=== PATIENT | female | born 1945 | race Caucasian/White ===

== ENCOUNTER → 2016-07-08 | Outpatient (CLI) | payer OTHER ==
[~2016-07-08] VITALS: Ht 167.6 cm; Wt 84.6 kg
[~2016-07-08] MED LIST: ASPIR 8181 MG PO; ATORVASTATIN CA40 MG PO; COZAAR 50 MG TA50 M2 PO; IBUPROFEN 200200 M1 PO; ROSUVASTATIN CA40 MG PO; TOPROL XL25 MG PO
--- NOTE | ~2016-07-08 | HPC ---
[facility] [place] [address] PAIN MANAGEMENT CONSULTATION Name: RUDY NICHOLSON Room #: REG [facility].#: [id number] Admission: 07/08/16 Attend Phys: Neal Rao DO Discharge: Date of : 43 Report #: [id number] THIS REPORT FOR: //name// CC: Anatoly Steele NP DATE OF SERVICE: 07/08/2016 DATE OF SERVICE: 07/08/2016 CHIEF COMPLAINT: Low back pain, left lower extremity pain. HISTORY OF PRESENT ILLNESS: As you know, patient is a 71-year-old female, who returns today in followup visit having noted 100% improvement in overall pain lasting for nearly 6 months with the previous injection. She returns today with recurrent pain, now rating pain somewhere between 7-9/10. She states her pain is "miserable." She states it is sharp, aching, numbness and tingling, exacerbated with bending and walking, improves with repositioning. She returns today to undergo the next in a series of epidural injections in hopes of building on success of previous intervention. She denies any changes in her medical history since our last visit. ALLERGIES: No known drug allergies. CURRENT MEDICATIONS: , ibuprofen, aspirin, metoprolol, losartan. SOCIAL HISTORY: She denies IV or illicit drug use. Smokes tobacco occasionally. She takes one alcohol beverage per day. She is unaccompanied today. PHYSICAL EXAMINATION: VITAL SIGNS: Blood pressure 128/70, pulse 86, respiratory rate 16, unlabored. The patient 98% on room air. Height 5 feet 6 inch tall, weight 186.4 pounds, BMI calculated 30.1. GENERAL: Well-developed, well nourished, well hydrated 71-year-old female appearing stated age, placing current pain score 7-9/10. HEENT: Normocephalic, atraumatic. Pupils equal, round, reactive to light. EXTREMITIES: Show no clubbing, no cyanosis, no edema. MUSCULOSKELETAL: Seated straight leg raising negative. Supine straight leg raising positive on the left. Hola's test negative. Modified Gaenslen's positive for axial low back pain. There is a slight change in gait favoring left lower extremity over right. ASSESSMENT: 1. Chronic lumbar radiculopathy. [address] [address] PAIN MANAGEMENT CONSULTATION Name: RUDY NICHOLSON Room #: REG [facility] Sreekanth#: [id number] Admission: 07/08/16 Attend Phys: Neal Rao DO Discharge: Date of : 43 Report #: [id number] 2. Displacement of lumbar intervertebral disk with radiculopathy. 3. Lumbosacral spondylosis with radiculopathy. 4. Severe neural foraminal stenosis of lumbar spine. 5. Chronic intractable pain. PLAN: 1. The patient returns today in followup visit having noted 100% improvement in overall pain with the epidural injection provided on 11/07/2015. The patient reports near 6-month improvement in overall symptoms, but unfortunately began to experience slow and progressive return of symptoms. She is now placing pain score 7/10. She returns today in followup visit to undergo the next in the series of epidural injections in hopes of improving pain further. The patient was advised of the risks and the benefits of this procedure. These risks include but are not necessarily limited to bleeding, bruising, infection, worsening pain, no relief of pain, also risk of temporary or permanent muscle weakness, temporary or permanent nerve damage, possible paralysis and . The patient states understood and wished to proceed. 2. No medication changes were made at today's visit. The patient will continue current medical therapy as previously prescribed. 3. The patient to return to our clinic on an as needed basis for possible next in the series of epidural injections. PROCEDURE NOTE DESCRIPTION OF PROCEDURE: Lumbar epidural steroid injection under fluoroscopic guidance. This is the second procedure of the first series that the patient is undergoing. After obtaining written consent, the patient was taken back to the fluoroscopy suite, placed in a prone position with pillow under the abdomen to decrease lumbar lordosis. The skin overlying the lumbosacral area was then prepped and draped in aseptic fashion. The lumbar vertebral interspace was then identified by AP fluoroscopy. The skin and subcutaneous tissue overlying the target site of injection was anesthetized with 3 mL 1% lidocaine. A 20-gauge 3-1/2 inch Tuohy needle was then advanced under fluoroscopic guidance towards the epidural space using a left paramedian approach. The epidural space was identified using loss of resistance to air technique. After negative aspiration for heme or cerebrospinal fluid, a total of 1 mL of Omnipaque was injected. A lumbar epidurogram was confirmed using both AP and lateral fluoroscopy. After negative aspiration for heme or cerebrospinal fluid, 5 mL of solution containing 2 mL 40 mg per mL 80 mg total triamcinolone, 3 mL of lidocaine 1% was injected in increments. Contrast spread was noted posterior epidural space. The needle was then retracted approximately half way and needle tract flushed with 1 mL of 1% lidocaine. Needle was then removed. There were [facility] [address] [place] [address] PAIN MANAGEMENT CONSULTATION Name: RUDY NICHOLSON Room #: REG [facility]#: [id number] Admission: 07/08/16 Attend Phys: Neal Rao DO Discharge: Date of : 43 Report #: [id number] no apparent sensory or motor deficits in the lower extremity following the procedure. A sterile bandage was placed over the injection site. The heart rate, pulse, oximetry and blood pressure were continuously monitored after the procedure. There were no apparent complications. The patient tolerated the procedure well and was carefully escorted to the recovery room in stable condition. There were no apparent complications. After meeting discharge criteria, the patient was then discharged home. By: [id number] Neal Rao DO /nt
[2016-07-08 13:37] VITALS: BP 128/70
== END | disposition home or self-care (01) ==
LOC: PAIN 06:39
DX: M51.16 Intervertebral disc disorders with radiculopathy, lumbar region (principal); M47.27 Other spondylosis with radiculopathy, lumbosacral region; M48.06 Spinal stenosis, lumbar region; G89.29 Other chronic pain

== ENCOUNTER → 2016-08-26 | Outpatient (CLI) | payer OTHER ==
[~2016-08-26] VITALS: Ht 167.6 cm; Wt 82.6 kg
--- NOTE | ~2016-08-26 | HPC ---
[facility] [address] [place] [address] PAIN MANAGEMENT CONSULTATION Name: RUDY NICHOLSON Room #: REG [facility].#: [id number] Admission: 08/26/16 Attend Phys: Neal Rao DO Discharge: Date of : 43 Report #: [id number] THIS REPORT FOR: //name// CC: Anatoly Steele NP DATE OF SERVICE: 08/26/2016 CHIEF COMPLAINT: Neck pain, left upper extremity pain and paresthesias. HISTORY OF PRESENT ILLNESS: As you know, the patient is a 71-year-old female who was originally referred to our service for low back pain, left lower extremity pain. She has done very well with injections to address lumbar radicular symptoms, but now neck pain, left upper extremity pain for which she places pain score at 8/10, states her pain is aching, numbness and tingling when describing symptoms. Pain is radiating from the neck all the way down into the hand. She originally believed this pain was due to shoulder issue, this has been effectively ruled out by the primary team and she was referred for cervical radicular symptoms. The patient indicates sleep movement exacerbates symptoms. Nothing appears to improve pain. ALLERGIES: No known drug allergies. CURRENT MEDICATIONS: Rosuvastatin 40 mg per day, ibuprofen 200 mg 4 tabs 3 times a day, aspirin 81 mg per day, metoprolol 25 mg per day, losartan 50 mg twice a day. IMAGING: No new imaging available. PHYSICAL EXAMINATION: VITAL SIGNS: Blood pressure 145/75, pulse 74, respiratory rate 16, unlabored. The patient is 100% on room air, height 5 feet 6 inches tall, weight 182.2 pounds, BMI calculated 29.4. GENERAL: Well-developed, well-nourished, well-hydrated 71-year-old female appearing her stated age. She is placing pain score today at around 8/10. HEENT: Normocephalic, atraumatic. Pupils equal, round, reactive to light. Extraocular muscles are intact. Sclerae are nonicteric without injection. NEUROLOGIC: Cranial nerves 2-12 grossly intact. Speech fluent. The patient deemed a good historian. LUNGS: Clear, no wheeze, rhonchi or rales. CARDIOVASCULAR: Regular. No appreciable gallop or rub. ABDOMEN: Soft, mildly obese, normoactive bowel sounds. EXTREMITIES: Show no clubbing, no cyanosis, no edema. MUSCULOSKELETAL: Upper extremity strength appears equal and symmetrical 5/5. [address] [address] PAIN MANAGEMENT CONSULTATION Name: RUDY NICHOLSON Room #: REG [facility].#: [id number] Admission: 08/26/16 Attend Phys: Neal Rao DO Discharge: Date of : 43 Report #: [id number] She is intact to light touch from C5 through T1 dermatomes. Provocation testing of the left shoulder does intensify pain, but pain is not in the actual shoulder itself, it is radiating from the neck into the proximal radial area. Spurling's test is equivocal. Cervical provocation testing does intensify neck pain with no radiation of symptoms. Muscle bulk and tone is equal and symmetrical in upper extremities. ASSESSMENT: 1. Cervical radiculopathy. 2. Cervical spondylosis with radicular symptoms. 3. Left shoulder pain. PLAN: 1. The patient has returned today in followup visit with new onset of neck pain, left upper extremity pain and paresthesias. It does not appear the patient is suffering from any intrinsic shoulder pathology as passive and active range of motion does not cause pain directly in the shoulder. It does cause pain in radiation distribution, more typical of radiculopathy. Her Spurling's test was equivocal today and difficult to determine if she was receiving any significant pain distribution with the maneuver, but her pain has been present and appears to be radiating in a typical radicular fashion radiating from the neck into the myotomal distribution in the upper back, but also radiation with dermatomal distribution all the way to the proximal radius. The patient and I discussed the treatment options for suspected cervical radiculopathy. These would include physical therapy, stretching exercises and traction techniques. We discussed medication management with neuropathic pain medications. We discussed the requested cervical epidural injection and surgical options. After reviewing risks and benefits of all proposed treatment options, the patient chose to begin with a cervical epidural injection. The patient was advised risks and benefits of a cervical epidural injection. These risks include but are not necessarily limited to bleeding, bruising, infection, worsening pain, no relief of pain, also risk of temporary or permanent muscle weakness, temporary or permanent nerve damage, possible paralysis and . The patient states understood and wished to proceed. 2. No medication changes were made at today's visit. The patient to continue current medical therapy as previously prescribed. 3. We will see the patient back in followup visit in 2-3 weeks. At that time, review efficacy of today's cervical epidural injection and determine if repeat injection might be necessary. 4. We wish to thank the referring team for the opportunity to see this patient back in followup visit. Again, we wish to thank that referring team. PROCEDURE NOTE DESCRIPTION OF PROCEDURE: C7-T1 cervical epidural steroid injection under fluoroscopic guidance. [address] [address] PAIN MANAGEMENT CONSULTATION Name: RUDY NICHOLSON Room #: REG [facility]#: [id number] Admission: 08/26/16 Attend Phys: Neal Rao DO Discharge: Date of : 43 Report #: [id number] After obtaining written consent, the patient was taken back to fluoroscopy suite, placed in a prone position with separate pillows under chest and forehead to decrease cervical lordosis. Skin overlying cervical area prepped and draped in aseptic fashion. C7-T1 cervical interspace was identified by AP fluoroscopy. Skin and subcutaneous tissue overlying the target site of injection was anesthetized with 3 mL of 1% lidocaine. A 20-gauge 3-1/2 inch Tuohy needle advanced under fluoroscopic guidance towards the epidural space using a left paramedian approach. Epidural space identified using loss of resistance to air technique. After negative aspiration for heme or cerebrospinal fluid, 1 mL of Omnipaque was injected. A cervical epidurogram was confirmed using both AP and oblique fluoroscopy. After negative aspiration for heme or cerebrospinal fluid, 5 mL of a solution containing 2 mL 40 mg per mL, 80 mg total triamcinolone, 3 mL lidocaine 1% injected slowly. Needle retracted skilled nursing, needle tract flushed 3 mL 1% lidocaine. Needle then removed. Sterile bandage placed over injection site. No new motor deficits present in the upper extremity following the procedure. The patient tolerated procedure well, carefully escorted to the recovery in stable condition. No apparent complications. After meeting discharge criteria, the patient discharged home. By: [id number] Neal Rao DO /nt
[2016-08-26 09:14] VITALS: BP 145/75
== END | disposition home or self-care (01) ==
LOC: PAIN 07:27
DX: M54.12 Radiculopathy, cervical region (principal); M47.812 Spondylosis without myelopathy or radiculopathy, cervical region; M25.512 Pain in left shoulder

== ENCOUNTER → 2016-09-09 | Outpatient (CLI) | payer OTHER ==
[~2016-09-09] VITALS: Ht 167.6 cm; Wt 81.1 kg
[~2016-09-09] MED LIST changes: +MOBIC7.5 MG PO
[2016-09-09 09:49] VITALS: BP 122/78
== END ==
LOC: PAIN 06:49
DX: M47.22 Other spondylosis with radiculopathy, cervical region (principal); I10 Essential (primary) hypertension; F17.200 Nicotine dependence, unspecified, uncomplicated; F10.21 Alcohol dependence, in remission

== ENCOUNTER → 2017-03-24 | Outpatient (CLI) | payer OTHER ==
[~2017-03-24] VITALS: Ht 167.6 cm; Wt 84.1 kg
--- NOTE | ~2017-03-24 | HPC ---
[facility] [address] [place] [address] PAIN MANAGEMENT CONSULTATION Name: BHARATRUDY Anupam Room #: REG [facility]..#: [id number] Admission: 03/24/17 Attend Phys: Neal Rao DO Discharge: Date of : 43 Report #: [id number] THIS REPORT FOR: //name// CC: DONTRELL Rao LOUISE [employer] DATE OF SERVICE: 03/24/2017 CHIEF COMPLAINT: Low back pain, right lower extremity pain and paresthesias. HISTORY OF PRESENT ILLNESS: As you know, the patient is a very pleasant 71-year-old female who returns today in followup visit with low back pain, right lower extremity pain and paresthesias. The patient indicates pain is sharp, aching, sore, numbness, tingling and stabbing; places current pain score at 8/10; exacerbated with sitting and activities; improves with medications, heat and cold compresses and epidural injections. She returns today in followup visit requesting next in the series of epidural injections to address recurrent lumbar radicular symptoms. The patient indicates no new injury, no new trauma that may have led to symptom development. She returns today requesting this epidural injection in hopes of improving low back pain and lower extremity symptoms consistent with lumbar radiculopathy. ALLERGIES: No known drug allergies. CURRENT MEDICATIONS: Meloxicam 7.5 mg twice a day, lovastatin 40 mg once a day, ibuprofen p.r.n., aspirin 81 mg per day, metoprolol 25 mg per day, losartan 50 mg per day. SOCIAL HISTORY: The patient denies IV or illicit drug use. Continues to smoke. Admits to one alcoholic beverage per day. She is retired, unaccompanied today. IMAGING: No new imaging available. PHYSICAL EXAMINATION: VITAL SIGNS: Blood pressure 140/68, pulse 68, respiratory rate 20 and unlabored. The patient is 100% on room air. Height 5 feet 6 inches tall, weight 185.4 pounds, BMI calculated at 29.9. GENERAL: Well-developed, well-nourished, well-hydrated 71-year-old female appearing her stated age, placing pain score today around 8/10. HEENT: Normocephalic, atraumatic. Pupils equal, round, reactive to light. Extraocular muscles are intact. EXTREMITIES: Show no clubbing, no cyanosis, no edema. MUSCULOSKELETAL: Seated straight leg raising negative. Supine straight leg raising positive on the right. DIANNA [place] [address] PAIN MANAGEMENT CONSULTATION Name: RUDY NICHOLSON Room #: REG [facility]#: [id number] Admission: 03/24/17 Attend Phys: Neal Rao DO Discharge: Date of : 43 Report #: [id number] positive for axial low back pain. Ankle clonus negative. Babinski is negative. Muscle bulk and tone symmetrical in lower extremities. She is intact to light touch from L1 through S2 dermatomes. ASSESSMENT: 1. Symptomatic lumbar radiculopathy. 2. Displacement of lumbar intervertebral disk with radiculopathy. 3. Lumbosacral spondylosis with radiculopathy. 4. Severe foraminal stenosis of lumbar spine. 5. Chronic intractable pain. PLAN: 1. The patient has returned today in followup visit requesting the next in a series of epidural injections. She has had a slow and progressive return of symptoms without inciting injury or trauma. She has requested this epidural injection be provided today. We have advised the patient of the risks and benefits of the procedure, states she understood and wished to proceed. 2. The patient was provided a prescription of meloxicam 7.5 mg 1 tab p.o. b.i.d. She was given #60 tablets, 2 refills. The patient was advised she should take this medication only when pain is present. She is not to utilize the medication prophylactically. 3. We will see the patient back in followup visit on an as needed basis for further treatment options including treatment for her chronic low back pain and neck pain. PROCEDURE NOTE DESCRIPTION OF PROCEDURE: L5-S1 interlaminar epidural steroid injection under fluoroscopic guidance. After obtaining written consent, the patient was taken back to fluoroscopy suite, placed in prone position with pillow under abdomen to decrease lumbar lordosis. Skin overlying lumbosacral area was then prepped and draped in aseptic fashion. Lumbar intervertebral spaces identified by AP fluoroscopy. Skin and subcutaneous tissue overlying target site of injection was anesthetized with 3 mL of 1% lidocaine. A 20-gauge 3-1/2 inch Tuohy needle advanced under fluoroscopic guidance towards the epidural space using a paramedian approach. Epidural space identified using loss of resistance to air technique. After negative aspiration for heme or cerebrospinal fluid, 1 mL of Omnipaque was injected. Lumbar epidurogram was confirmed using both AP and lateral fluoroscopy. After negative aspiration for heme or cerebrospinal fluid, 5 mL of a solution containing 2 mL 40 mg per mL, 80 mg total triamcinolone, 3 mL lidocaine 1% injected slowly. Needle retracted intermediate, needle tract flushed with 3 mL of 1% lidocaine. Needle then removed. Sterile bandage placed over injection site. No new motor deficits present in [address] [address] PAIN MANAGEMENT CONSULTATION Name: RUDY NICHOLSON Room #: [facility]#: [id number] Admission: 03/24/17 Attend Phys: Neal Rao DO Discharge: Date of : 43 Report #: [id number] lower extremity following procedure. The patient tolerated procedure well, carefully escorted to the recovery room in stable condition. No apparent complication. After meeting discharge criteria, the patient discharged home. <ELECTRONICALLY SIGNED> By: Neal Rao DO 03/30/17 0812 [id number] Neal Rao DO /nt
[2017-03-24 10:15] VITALS: BP 148/68
== END | disposition home or self-care (01) ==
LOC: PAIN 09-23 06:47
DX: M51.16 Intervertebral disc disorders with radiculopathy, lumbar region (principal); M47.27 Other spondylosis with radiculopathy, lumbosacral region; G89.29 Other chronic pain; F17.200 Nicotine dependence, unspecified, uncomplicated

== ENCOUNTER → 2017-12-16 | Outpatient (CLI) | payer OTHER ==
[~2017-12-16] VITALS: Ht 167.6 cm; Wt 77.1 kg
[~2017-12-16] MED LIST changes: +DICLOFENAC POTA50 MG PO; +MEDROL DOSPAK21 TA1 PO
--- NOTE | ~2017-12-16 | HPC ---
[facility] [place] [address] PAIN MANAGEMENT CONSULTATION Name: BHARATRUDY MILLER Room #: REG [facility].#: [id number] Admission: 12/16/17 Attend Phys: Neal Rao DO Discharge: Date of : 43 Report #: [id number] THIS REPORT FOR: //name// CC: Anatoly Steele NP DATE OF SERVICE: 12/16/2017 CHIEF COMPLAINT: Left shoulder pain, left medial elbow pain. HISTORY OF PRESENT ILLNESS: As you know, the patient is a very pleasant 72-year-old female who returns today in followup visit indicating her back pain and right lower extremity pain has improved significantly. She is now experiencing left shoulder pain and medial elbow pain. She indicates no injury, no trauma that may have led to symptom occurrence. This has been present for some time. She has not sought evaluation through her primary care physician nor has she discussed this with Orthopedics. She does have imaging of the left shoulder we performed in 2017, which showed osteoarthrosis involving the glenohumeral joint, greater tuberosity and acromioclavicular joint. She returns with what appears to be biceps tendinitis and medial elbow pain, likely due to medial epicondylitis. She is placing pain score today around 8-9/10. ALLERGIES: No known drug allergies. CURRENT MEDICATIONS: Losartan 50 mg per day, aspirin 81 mg per day, ibuprofen 200 mg 3 times a day, lovastatin 40 mg per day. SOCIAL HISTORY: The patient denies IV or illicit drug use. She does smoke 2-3 cigarettes per week. She admits to 1 alcoholic beverage per day. She is retired, unaccompanied today. IMAGING: No new imaging available. PQRS: The patient has known osteoarthritis of the bilateral shoulders, left greater than right. She also has arthritic changes in the low back. No rheumatoid arthritis. Pain intensity today 8-9/10. She is not a fall risk, has not had a fall in the last 3 months. She is on blood thinners. She is treated for hypertension. She has not been on opioids for greater than 6 weeks. She has a low risk assessment tool for opioid addiction. PHYSICAL EXAMINATION: VITAL SIGNS: Blood pressure 153/94, pulse 89, respiratory rate 16 and unlabored. The patient is 100% on room air. Height 5 feet 6 inches tall, weight 170 pounds, BMI calculated 27.5. [place] [address] PAIN MANAGEMENT CONSULTATION Name: RUDY NICHOLSON [id number] Admission: 12/16/17 Attend Phys: Neal Rao DO Discharge: Date of : 43 Report #: [id number] GENERAL: Well-developed, well-nourished, well-hydrated 72-year-old female appearing stated age, placing current pain score at 8-9/10. HEENT: Normocephalic, atraumatic. Pupils equal, round, reactive to light. Extraocular muscles are intact. Sclerae nonicteric without injection. NEUROLOGIC: Cranial nerves 2-12 grossly intact. Speech is fluent. The patient deemed a good historian. LUNGS: Clear. No wheeze, rhonchi or rales. CARDIOVASCULAR: Regular. No appreciable gallop or rub. ABDOMEN: Soft, nontender, nondistended. EXTREMITIES: Show no clubbing, no cyanosis, no edema. MUSCULOSKELETAL: The patient has significant palpatory tenderness directly over the biceps groove on the left when compared to the right. She has limited range of motion of the shoulder with pain intensification with abduction and adduction improves pain. There is limited rotation of the shoulder, both in active and passive motion secondary to pain. There is palpatory tenderness also noted on the medial aspect of the left elbow Range of motion of the elbow appears normal. There is palpatory tenderness located over the epicondyle on the left medial aspect. ASSESSMENT: 1. Left biceps tendinitis. 2. Left medial epicondylitis. 3. Left shoulder pain. 4. Left shoulder osteoarthritis. 5. Chronic intractable pain. PLAN: 1. The patient returns today in followup visit with left shoulder pain, which does correlate to biceps tendinitis. As you are aware, imaging from last year shows significant arthritic changes in the shoulder joint itself. I believe the symptoms she is experiencing currently are due to biceps tendinitis as the biceps tendon traverses underneath the acromioclavicular joint, which is also arthritic. We discussed with the patient treatment options for the biceps tendinitis, which could include physical therapy, stretching exercises and mobility techniques. We discussed topical and oral nonsteroidal anti-inflammatory applications. We also discussed medication management initially starting with a steroid to reduce the inflammatory process and then utilizing nonsteroidal anti-inflammatories orally to maintain benefit. We also discussed an intra-articular shoulder injections and surgical options. After reviewing risks and benefits of all proposed treatment options, the patient chose to begin with medication management. 2. The patient and I did discuss treatment options for medial epicondylitis. These would include very similar treatment options to above physical therapy with range of motion techniques. We discussed topical nonsteroidal anti-inflammatories, oral anti-inflammatory medications both steroid initially and then followed by a maintenance nonsteroidal anti-inflammatory and injection [address] [address] PAIN MANAGEMENT CONSULTATION Name: RUDY NICHOLSON Room #: REG [facility]#: [id number] Admission: 12/16/17 Attend Phys: Neal Rao DO Discharge: Date of : 43 Report #: [id number] options and surgical options. After reviewing risks and benefits, the patient chose to continue with medication changes as indicated for her biceps tendinitis. 3. The patient will be started on a Medrol Dosepak. She will take the pack as directed. She will start with 6 tablets in the morning next day, then reduced to 5, then 4, then 3, then 2, then 1, then off to 6-8 titration. She was given this prescription to be filled at her earliest convenience. 4. The patient will be started on maintenance dose of diclofenac 50 mg dose 1 tab p.o. t.i.d. The patient will take this medication for maintenance control for anti-inflammatory effects. She will watch for side effects of dyspepsia, worsening blood pressure, lower extremity edema. If she notes any side effects, discontinue immediately and contact our clinic. 5. The patient can return to our clinic at any time if she wishes to undergo interventional treatments. Initially, we would look at medial epicondyle injections and biceps tendon injections. If these are ineffective, I would recommend evaluation with Orthopedics. For the left shoulder certainly, medial epicondylitis is usually treated conservatively. 6. We will see the patient back in followup visit on an as needed basis. By: 0811 [id number] Neal Rao DO /nt
[2017-12-16 10:18] VITALS: BP 153/94
== END ==
LOC: PAIN 07:31
DX: M75.22 Bicipital tendinitis, left shoulder (principal); M77.02 Medial epicondylitis, left elbow; M19.012 Primary osteoarthritis, left shoulder; G89.4 Chronic pain syndrome

== ENCOUNTER → 2018-01-27 | Outpatient (CLI) | payer OTHER ==
[~2018-01-27] VITALS: Ht 167.6 cm; Wt 84.9 kg
--- NOTE | ~2018-01-27 | HPC ---
[facility] [place] [address] [address] [place] [address] PAIN MANAGEMENT CONSULTATION Name: RUDY NICHOLSON Room #: REG [facility].#: [id number] Admission: 01/27/18 Attend Phys: Neal Rao DO Discharge: Date of : 43 Report #: [id number] THIS REPORT FOR: //name// CC: Anatoly JOHNRTH Physician staff Michela Steele NP DATE OF SERVICE: 01/27/2018 REFERRING PHYSICIAN: Michela Steele, nurse practitioner. PRIMARY CARE PHYSICIAN: Anatoly Galeano MD CHIEF COMPLAINT: Low back pain, left lower extremity pain and paresthesias. HISTORY OF PRESENT ILLNESS: As you know, the patient is a very pleasant 72-year-old female who returns today in followup visit with low back pain, left lower extremity pain and paresthesias. The patient states the pain began as a sharp, shooting, electrical-like sensation radiating from the left buttock all the way down the leg to the foot. She denies injury or trauma. She states that she was in her normal state of health just until recently where her symptoms began. She tried conservative medication therapy, rest, relaxation, but this did not improve the patient's symptoms. She returns today to discuss the possibility of undergoing epidural injection under fluoroscopic guidance to address lumbar radicular symptoms. ALLERGIES: No known drug allergies. CURRENT MEDICATIONS: Meloxicam 7.5 mg twice a day, lovastatin 40 mg once a day, ibuprofen p.r.n., aspirin 81 mg per day, metoprolol 25 mg per day, losartan 50 mg per day. SOCIAL HISTORY: The patient denies IV or illicit drug use. Continues to smoke. Admits to one alcoholic beverage per day. She is retired, unaccompanied. IMAGING: No new imaging available. PQRS: The patient has osteoarthritic changes of the shoulders and low back. No rheumatoid arthritis. Pain intensity is reported today at 10/10. She is not a fall risk, has not had a fall in the last 3 months. She is not on blood thinners. She is treated for hypertension. She is not on chronic opioids. She is a low risk for opioid abuse. Functional assessment pain impact tool shows 60/70, severe, near complete interference of daily activities secondary to pain. [address] [address] PAIN MANAGEMENT CONSULTATION Name: NICHOLSONRUDYWILI MILLER Room #: REG [facility]#: [id number] Admission: 01/27/18 Attend Phys: Neal Rao DO Discharge: Date of : 43 Report #: [id number] PHYSICAL EXAMINATION: VITAL SIGNS: Blood pressure is 160/93, pulse 89, respiratory rate 18 and unlabored. The patient is 97% on room air. Height 5 feet 6 inches tall, weight 187.2 pounds, BMI calculated 30.2. GENERAL: Well-developed, well-nourished, well-hydrated 72-year-old female, appears her stated age. She is in no acute distress, awake, alert and oriented x 3. Current pain score is 10/10. HEENT: Normocephalic, atraumatic. Pupils equal, round, reactive to light. Extraocular muscles are intact. EXTREMITIES: Show no clubbing, no cyanosis, no edema. MUSCULOSKELETAL: Lower extremity strength appears equal and symmetrical 5/5. Slight giveaway strength noted with hip flexion on the left when compared to the right, this is due to pain generation. Muscle bulk and tone appears equal and symmetrical when comparing left lower extremity to the right. Ankle clonus is negative. Babinski is negative. Seated straight leg raising mildly positive left. Supine straight leg raising positive left. ASSESSMENT: 1. Lumbar radiculopathy. 2. Displacement of lumbar intervertebral disk with radiculopathy. 3. Lumbosacral spondylosis with radiculopathy. 4. Severe foraminal stenosis of the lumbar spine. 5. Facet arthropathy of the lumbar spine. 6. Chronic intractable pain. PLAN: 1. The patient returns today in followup visit with recurrence of low back pain and lower extremity pain with paresthesias. The patient and I discussed at length the efficacy with previous epidural injection for which the patient noted near 100% improvement in overall pain lasting for nearly a year. Unfortunately, her symptoms have returned. She returns today to undergo next in the series of epidural injections. The patient was advised of the risks and the benefits of this procedure. These risks include but are not necessarily limited to bleeding, bruising, infection, worsening pain, no relief of pain and also risk of temporary or permanent muscle weakness, temporary or permanent nerve damage, possible paralysis and . The patient states she understood and wished to proceed. 2. The patient was provided a prescription of meloxicam 7.5 mg 1 tab p.o. b.i.d. I have given the patient #60 tablets, 2 refills, 3 months' worth of medication. The patient was advised to watch for dyspepsia, worsening blood pressure, lower extremity edema with its use. If she notes any side effects, discontinue immediately, call for further instructions. 3. We will see the patient back in followup visit on an as needed basis for the next in the series of epidural injections. PROCEDURE NOTE [address] [address] PAIN MANAGEMENT CONSULTATION Name: RUDY NICHOLSON Room #: REG [facility]#: [id number] Admission: 01/27/18 Attend Phys: Neal Rao DO Discharge: Date of : 44 Report #: [id number] DESCRIPTION OF PROCEDURE: L5-S1 interlaminar epidural steroid injection under fluoroscopic guidance. After obtaining written consent, the patient was taken back to fluoroscopy suite, placed in prone position with pillow under abdomen to decrease lumbar lordosis. Skin overlying the lumbosacral area then prepped and draped in aseptic fashion. Lumbar intervertebral spaces were identified by AP fluoroscopy. Skin and subcutaneous tissue overlying target site of injection was anesthetized with 3 mL of 1% lidocaine. A 20-gauge 3-1/2 inch Tuohy needle advanced under fluoroscopic guidance towards the epidural space using a paramedian approach. Epidural space identified using loss of resistance to air technique. After negative aspiration for heme or cerebrospinal fluid, 1 mL of Omnipaque was injected. Lumbar epidurogram confirmed using both AP and lateral fluoroscopy. After negative aspiration for heme or cerebrospinal fluid, 5 mL of a solution containing 2 mL 40 mg per mL, 80 mg total triamcinolone, 3 mL of lidocaine 1% injected slowly. Needle retracted usp, flushed with 1 mL of 1% lidocaine and removed. Sterile bandage placed over injection site. No new motor deficits present in the lower extremity following procedure. The patient tolerated the procedure well, carefully escorted to recovery room in stable condition. No apparent complications. After meeting discharge criteria, the patient discharged home. <ELECTRONICALLY SIGNED> By: Neal Rao DO 02/02/18 0727 [id number] Neal Rao DO /nt
[2018-01-27 14:12] VITALS: BP 160/93
== END | disposition home or self-care (01) ==
LOC: PAIN 08:55
DX: M51.16 Intervertebral disc disorders with radiculopathy, lumbar region (principal); M47.27 Other spondylosis with radiculopathy, lumbosacral region; M48.061 Spinal stenosis, lumbar region without neurogenic claudication; M46.96 Unspecified inflammatory spondylopathy, lumbar region; G89.29 Other chronic pain; F17.210 Nicotine dependence, cigarettes, uncomplicated; Z79.82 Long term (current) use of aspirin; Z79.899 Other long term (current) drug therapy; Z98.890 Other specified postprocedural states

== ENCOUNTER → 2020-10-17 | Outpatient (CLI) | payer OTHER ==
[~2020-10-17] VITALS: Ht 165.1 cm; Wt 88.0 kg
[~2020-10-17] MED LIST changes: +IBUPROFEN200 M1 PO; +TYLENOL EXTRA500 MG PO
--- NOTE | ~2020-10-17 | HPC ---
[facility] [place] [address] PAIN MANAGEMENT CONSULTATION Name: RUDY NICHOLSON Room #: REG [facility]..#: [id number] Admission: 10/17/20 Attend Phys: Neal Rao DO Discharge: Date of : 43 Report #: [id number] THIS REPORT FOR: cc: GSUTABO IZQUIERDO MD Physician not on staff Neal Rao DO ~ DOC #: [id number] cc: Eileen Holloway NP, MD Neal Troncoso DO DATE OF SERVICE: 10/17/2020 REFERRING NURSE PRACTITIONER: Michela Holloway NP CHIEF COMPLAINT: Low back pain, left lower extremity pain with paresthesias. HISTORY OF PRESENT ILLNESS: As you know, the patient is a very pleasant 75-year-old female reporting a longstanding history of lumbar radicular symptoms involving low back and left lower extremity. The patient indicates pain is exacerbated with standing, lifting, walking, weightbearing and playing her favorite game of golf. She has undergone epidural injections under fluoroscopic guidance with our clinic noticing excellent benefit. Most recent epidural injection according to the patient gave 90% improvement in overall pain lasting for months. She returns today in followup visit requesting to undergo the next in the series of epidural injections. She denies injury or trauma that may have led to symptom reoccurrence. She has not had any changes in medication management that would preclude us from providing this injection today. ALLERGIES: No known drug allergies. CURRENT MEDICATIONS: See chart. SOCIAL HISTORY: The patient denies IV or illicit drug use. Admits to continued tobacco use. Admits to 1 alcohol beverage per day. She is unaccompanied at today's visit. IMAGING: No new imaging available. PQRS: The patient has known arthritic changes of bilateral shoulder and lumbar spine. No rheumatoid arthritis. Placing pain intensity today at 9/10. She is not a fall risk, does not have fall in last 3 months. She is not on blood thinners, but has history of hypertension. She is not on opioids, has a low opiate addiction potential. Based on our assessment tool, pain impact is 34/70. Moderate interference of daily activities secondary to pain. PHYSICAL EXAMINATION: VITAL SIGNS: Blood pressure 195/98, pulse 85, respiratory rate 16 and [facility] [address] [place] [address] PAIN MANAGEMENT CONSULTATION Name: BHARATRUDY MILLER Room #: [facility].#: [id number] Admission: 10/17/20 Attend Phys: Neal Rao DO Discharge: Date of : 43 Report #: [id number] unlabored. The patient 98% on room air. Height 5 feet 5 inches tall, weight 194 pounds, BMI calculated 32.3. GENERAL: Well-developed, well-nourished, well-hydrated 75-year-old female appearing stated age, placing current pain score at 9/10. HEENT: normocephalic, atraumatic. Pupils equal, round and responsive. EXTREMITIES: Show no clubbing, no cyanosis. No appreciable edema. The patient is wearing mask in compliance with COVID-19 regulations. Extremities show no clubbing, no cyanosis and no edema. MUSCULOSKELETAL: Lower extremity strength is symmetrical, today 5/5 intact to light touch from L1 through S2 dermatomes. Lumbar provocation testing met with increasing axial back pain, no radiation of symptoms. Seated straight leg raising negative. Supine straight leg raising positive on the left. ASSESSMENT: 1. Symptomatic lumbar radiculopathy. 2. Displacement of lumbar intervertebral disk with radiculopathy. 3. Severe and progressively worsening neural foraminal stenosis of the lumbar spine. 4. Lumbosacral spondylosis with radiculopathy. 5. Facet arthropathy, lumbar spine. 6. Chronic intractable pain. 7. Essential hypertension. PLAN: 1. The patient returns today in followup visit requesting a lumbar epidural injection under fluoroscopic guidance. She wishes to address her 9/10 pain. She denies injury or trauma that may have led to symptom development. She returns today to undergo the first in this series of epidural injections. The patient has been advised the risks and benefits of the procedure, states understood and wished to proceed. 2. The patient's blood pressure was noted to be quite elevated today, blood pressure is 195/98. Prior evaluations, the patient's blood pressure was in the range of about 141/91. I recommend strongly to the patient, she return to see her PCP for possible adjustments in antihypertensive therapy. We have advised the patient to watch for any increasing headache, vision changes or any concerning findings in regards to increase hypertension. If she notes any of these concerning findings, she should report to the Emergency Department. 3. No medication changes made at today's visit. The patient will continue current medical therapy as prior prescribed. 4. We will see the patient back in followup visit for next in the series of lumbar epidural injections on an as needed basis. DESCRIPTION OF PROCEDURE: L5-S1 interlaminar epidural steroid injection under fluoroscopic guidance. After obtaining written consent, the patient was taken back to fluoroscopy [address] [address] PAIN MANAGEMENT CONSULTATION Name: RUDY NICHOLSON Room #: [facility] [id number] Admission: 10/17/20 Attend Phys: Neal Rao DO Discharge: Date of : 43 Report #: [id number] suite, placed in prone position with pillow under abdomen to decrease lumbar lordosis. Skin overlying lumbosacral area prepped and draped in aseptic fashion. The L5-S1 vertebral interspace identified by AP fluoroscopy. Skin and subcutaneous tissue overlying target site injection anesthetized with 3 mL of 1% lidocaine. A 20 gauge 3-1/2 inch Tuohy needle advanced under fluoroscopic guidance towards the epidural space using a right parasagittal approach. Epidural space identified using loss of resistance to air technique. After negative aspiration for heme or cerebrospinal fluid, 1 mL of Isovue injected. Lumbar epidurogram confirmed using both AP and lateral fluoroscopy. After negative aspiration for heme or cerebrospinal fluid, 5 mL solution containing 2 mL 40 mg per mL 80 mg total triamcinolone along with 3 mL of lidocaine, 1% injected slowly. Needle retracted mcc flushed with 1 mL of 1% lidocaine, then removed and a sterile bandage was placed over injection site. No new motor deficits present in lower extremity following procedure. The patient tolerated the procedure well, carefully escorted to recovery room in stable condition. No apparent complications. After meeting discharge criteria, the patient is discharged home. Neal Rao DO JEJ/LARISSA By: 1215 0045 Neal Rao DO /richard
[2020-10-17 09:53] VITALS: BP 195/98
== END | disposition home or self-care (01) ==
LOC: PAIN 07:02
PROVIDERS: ATTEND Anesthesiology Pain Medicine
DX: M51.16 Intervertebral disc disorders with radiculopathy, lumbar region (principal); M48.061 Spinal stenosis, lumbar region without neurogenic claudication; M47.27 Other spondylosis with radiculopathy, lumbosacral region; M47.26 Other spondylosis with radiculopathy, lumbar region; G89.29 Other chronic pain; I10 Essential (primary) hypertension; M19.90 Unspecified osteoarthritis, unspecified site; Z98.890 Other specified postprocedural states; Z79.899 Other long term (current) drug therapy